=== PATIENT | male | born 1935 | race Caucasian/White ===

== ENCOUNTER 2025-02-18 16:47 | Outpatient (REF) | payer OTHER, SELFPAY ==
--- OUTSIDE RECORDS SUMMARY | 2025-02-18 19:07 | XMS_ITS | Clinical Summary ---
Author Organization [facility] [address] [place] [address] [place] [phone] Phone Care Team Providers Care Skein Yard Drier Name Role Phone KieranloliCielo summers Primary Care Provider [phone] Allergies No known active allergies Medications Comfort EZ Pen [place] 32 gauge x 5/32 needle USE FOR INJECT insulin 4 (FOUR) TIMES DAILY 100 each 5 024 Active enalapril (VASOTEC) 20 mg tablet Take 1 tablet (20 mg total) by mouth 1 (one) time each day. Active simvastatin (ZOCOR) 40 mg tablet Take 1 tablet (40 mg total) by mouth at bedtime. 024 Active HumaLOG KwikPen Insulin 100 unit/mL injection pen Inject 5-10 Units under the skin 3 (three) times a day before meals. nject 5-10 Units into the skin 3 times daily (with meals). Inject 3 times a day with meals. Follow the scale during the week with breakfast and lunch at day [id number] 5 units; 150-200 6 units; 201-250 7 units; 251-300 8 units; 301-350 9 units; 351-400 10 units, at dinner and during the weekend 8 units Active Dexcom G6 Sensor device Inject 1 EA into the skin See administration instructions. USE 1 sensor AND CHANGE EVERY 10 DAYS 024 Active pen needle, diabetic 32 gauge x 5/32 needle 1 each by Other route 4 (four) times a day. 022 Active Dexcom G6 Transmitter device 1 each by Other route See administration instructions. CHANGE transmitter EVERY 3 MONTHS 024 Active miscellaneous medical supply mis 1 Device by Not Applicable route. 023 Active OneTouch Ultra Test test strip 1 each by Other route 3 (three) times a day. Active lancets 33 gauge misc 1 Lancet by Other route 3 (three) times a day. Active Glucagon HCl, rDNA, (Glucagon Emergency Kit, human,) 1 mg injection Inject 1 Dose under the skin 1 (one) time if needed for low blood sugar. Active blood glucose control, normal (OneTouch Ultra Control) solution Use to calibrate OneTouch glucometer/strips 018 Active Jardiance 25 mg tablet TAKE 1 TABLET BY MOUTH ONCE DAILY 30 tablet 5 024 Active Trulicity 4.5 mg/0.5 mL pen injector injection INJECT THE CONTENTS OF ONE PEN SUBCUTANEOUSLY WEEKLY DIRECTED 6 mL 025 Active metFORMIN (GLUCOPHAGE) 1,000 mg tabletIndicatio ns:Type 2 diabetes mellitus with other diabetic neurological complication ([facility] V24, [facility] V28) TAKE 1 TABLET BY MOUTH ONCE DAILY WITH BREAKFAST 30 tablet 5 025 Active prazosin (MINIPRESS) 1 mg capsule TAKE 1 CAPSULE BY MOUTH AT BEDTIME 30 capsule 5 025 Active Lantus Solostar U-100 Insulin 100 unit/mL (3 mL) injection pen Inject 20 Units under the skin 1 (one) time each day in the morning. 45 mL 025 Active gabapentin (NEURONTIN) 100 mg capsuleIndicati ons:Type 2 diabetes mellitus with other diabetic neurological complication (CMS/HCC V24, [facility] V28) TAKE 1 CAPSULE BY MOUTH IN THE MORNING and 2 CAPSULES AT BEDTIME 90 capsule 5 025 Active gabapentin (NEURONTIN) 100 mg capsuleIndicati ons:Type 2 diabetes mellitus with other diabetic neurological complication ([facility] V24, [facility] V28) TAKE 1 CAPSULE IN THE MORNING and TAKE 2 CAPSULES AT BEDTIME 270 capsule 1 024 2024 Discontinued Lantus Solostar U-100 Insulin 100 unit/mL (3 mL) injection pen Inject 40 Units under the skin 1 (one) time each day in the morning. 45 mL 10/10/2 025 2024 Discontinued(R eorder) Active Problems Problem Noted Date Diagnosed Date BPH (benign prostatic hyperplasia) 08/10/2024 Hyperlipidemia 08/10/2024 Hypertension 08/10/2024 Lumbar spondylosis 06/30/2020 DJD (degenerative joint disease) of knee 020 Overview (08/10/2024): Moderate bilateral (xray 2018) Basal cell carcinoma (BCC) of left lower eyelid 03/17/2020 Overview (08/10/2024): S/p Mohs 03/31/2020 UMass MCI (mild cognitive impairment) with memory loss 12/10/2019 Overview (08/10/2024): Neuro 04/2020 Dr Ojeda Erectile dysfunction 04/15/2019 Daytime sleepiness 01/01/2019 Obstructive sleep apnea 03/15/2018 Overview (08/10/2024): [facility] Home Polysomnogram: Date 03/07/2018; AHI 15, Unclassified apneas 0; Obstructive apneas 22; Central apneas 0; Mixed apneas 0; hypopneas 59; average oxygen saturation 95% (lowest 89% without saturations <88% for 5% or more of study) - Obstructive Sleep Apnea - moderate; mostly hypopneas and obstructive apneas; without sleep related hypoventilation by 2018 home polysomnogram. Diabetes mellitus type 2 wit h neurological manifestations ([facility] V24, [facility] V28) 12/21/2017 Diabetic neuropathy ([facility] V24, [facility] V28) 0 12/21/2017 DM (diabetes mellitus) with peripheral vascular complication ([facility] V24, [facility] V28) 10/12/2017 Encounters Date Type Department Care Team Description 01/29/2025 4:00 PM EDT [facility] [address] [place] [phone] Asia Al PA Diabetes mellitus type 2 with neurological manifestations ([facility] V24, [facility] V28) (Primary Dx); Secondary hypertension; Hyperlipidemia, unspecified hyperlipidemia type 01/08/2025 Telephone Endocrinology - [place] [address] [place] [phone] Asia Al PA provider call back; Blood Sugar Problem (LOW) 01/02/2025 11:30 AM EDT Office Visit Internal Medicine - [address] [phone] Irvin Pinzon PA Health maintenance examination (Primary Dx); Peripheral edema 11/21/2024 Telephone Internal Medicine - [address] [phone] Cielo Hampton, Referral (Referral to Dr. Lavinia Higginbotham in [place]) 11/20/2024 Telephone Internal Medicine - [address] [phone] Cielo Hampton, Fitting for DME ([employer]) from Last 3 Months Immunizations Name Administration Dates Next Due Influenza trivalent, 0.5mL ( Fluad) 65yo and older 08/01/2023,07/05/2022,06/09/2021,07/02 PPD Test 11/07/2017 iCatapult SARS-CoV-2 COVID-19, mRNA, LNP-S, preservative free 04/28/2021,04/07/2021 Pneumococcal conjugate 13 va lent (Prevnar 13, PCV13) 2mo and older 11/07/2017 Pneumococcal polysaccharide 23 valent (Pneumovax 23) 2yo and older 07/16/2019 Tdap Tetanus diptheria acell ular pertussis (Boostrix; Adacel) 7yo and older 11/07/2017 Surgical History Surgery Date Site/Laterality Comments CHOLECYSTECTOMY PROCEDURE: HISTORICAL CHOLECYSTECTOMY APPENDECTOMY PROCEDURE: HISTORICAL APPENDECTOMY OTHER SURGICAL HISTORY 03/31/2020 Left PROCEDURE: CA EXC LESION EYELID W/O CLSR/W/SIMPLE DIR CLOSURE; COMMENT: lower lid BCC - Mohs', eyelid reconstruction >1/4 inch; [facility] (Dr. Yu) Medical History Medical History Date Comments High cholesterol DX:High cholest roberto carlos Hypertension DX:Hypertension Diabetes type 2, uncontrolled DX :Diabetes type 2, uncontrolled BPH (benign prostatic hyperplasia) DX:BPH (benign prostatic hyperplasia) DM (diabetes mellitus), type 2, uncontrolled, periph vascular complic 10/12/2017 DX:DM (diabetes mellitus), type 2, uncontrolled, periph vascular complic Daytime sleepiness 01/01/2019 DX:Daytime sl eepiness Erectile dysfunction 04/15/2019 DX:Erectile dysfunction Family History Medical History Relation Name Comments Alzheimer's disease Mother Other: rectal cancer Son Relation Name Status Comments Mother Son Social History Tobacco Use Types Packs/Day Years Used Date Smoking Tobacco: Former Cigarettes 1 20 0 09/11/1953 - 09/11/1973 Smokeless Tobacco: Never Alcohol Use Standard Drinks/Week Comments No 0 (1 standard drink = 0.6 oz pur e alcohol) Sex and Gender Information Value Date Recorded Sex Assigned at Not on file Legal Sex Male 12:43 PM EST Gender Identity Not on file Sexual Orientation Not on file Obstetrics History Last Filed Vital Signs Vital Sign Reading Time Taken Comments Blood Pressure 132/64 01/29/2025 4:09 PM EDT Pulse 86 01/29/2025 4:09 PM EDT Temperature 36.2 ??C (97.2 ??F) 01/29/2025 4:09 PM ED T Respiratory Rate 18 01/29/2025 4:09 PM EDT Oxygen Saturation 100% 01/29/2025 4:09 PM EDT Inhaled Oxygen Concentration - - Weight 101 kg (222 lb 6.4 oz) 01/29/2025 4:09 PM EDT Height 167.6 cm (5' 6 ) 01/29/2025 4:09 PM EDT Body Mass Index 35.9 01/29/2025 4:09 PM EDT Plan of Treatment Upcoming Encounters Date Type Department Care Team (Late st Contact Info) Description 04/30/2025 3:45 PM EDT Office Visit Endocrinology [address] [phone] Asia Al PA [address] [place] [address] 07/04/2025 2:15 PM EDT Office Visit Internal Medicine - [facility] [address] [place], [place] [phone] Irvin Pinzon PA [address] [place] [address] Health Maintenance Due Date Last Done Comments RSV Immunization Adult Patients (1 - 1-dose 75+ series) 2012 Zoster Vaccines (2 of 2) 01/11/2022 11/16/2021 Medicare Annual Wellness Visit 08/20/2022 Social Influencers of Health Screening 08/20/2022 COVID-19 Vaccine ( season) 2024 11/16/2021, 04/28/2021, 04/07/2021 Depression Screening 12/31/2024 01/01/2024 Diabetes: Annual Foot Exam 12/31/2024 01/01/2024 Falls Risk Assessment 12/31/2024 01/01/2024 Influenza Vaccine (Season Ended) 2025 08/01/2023, 07/05/2022, 06/09/2021, Additional history exists Diabetes: Annual Retina Eye Exam 06/06/2025 06/06/2024 Diabetes: Blood Sugar Control Test (HGBA1C) 08/01/2025 01/29/2025, 10/10/2024, 06/12/2024, Additional history exists Hypertension/CHF/CAD Annual BMP Blood Test 10/10/2025 10/10/2024, 06/27/2024, 06/27/2024 DTaP,Tdap,and Td Vaccines (2 - Td or Tdap) 11/07/2027 11/07/2017 Cholesterol Screening (Lipid Panel) 10/10/2029 10/10/2024, 01/01/2024 Pneumococcal Vaccine: 50+ Years Completed 07/16/2019, 11/07/2017 HIB Vaccines Aged Out No longer eligi ble based on patient's age to complete this topic HPV Vaccines Aged Out No longer eligi ble based on patient's age to complete this topic Hepatitis A Vaccines Aged Out No long er eligible based on patient's age to complete this topic Hepatitis B Vaccines Aged Out No long er eligible based on patient's age to complete this topic IPV Vaccines Aged Out No longer eligi ble based on patient's age to complete this topic MMR Vaccines Aged Out No longer eligi ble based on patient's age to complete this topic Meningococcal ACWY Vaccine Aged Out N o longer eligible based on patient's age to complete this topic Meningococcal B Vaccine Aged Out No l onger eligible based on patient's age to complete this topic RSV Immunization Patients Under 20 months Aged Out No longer eligible based on patient's age to complete this topic Varicella Vaccines Aged Out No longer eligible based on patient's age to complete this topic Procedures Procedure Name Priority Date/Time Associated Diagnosis Comments HEMOGLOBIN A1C Routine 01/29/2025 4:56 PM EDT Diabetes mellitus type 2 with neurological manifestations ([facility]24, [facility] V28) B-TYPE NATRIURETIC PEPTIDE Routine 01/02/2025 12:46 PM EDT Peripheral edema BASIC METABOLIC PANEL Routine 10/10/2024 4:02 PM EST DM (diabetes mellitus) with peripheral vascular complication ([facility] V24, [facility] V28) LIPID PANEL WITH REFLEX TO DIRECT LDL Routine 10/10/2024 4:02 PM EST Hyperlipidemia DIABETES EYE EXAM Routine 06/06/2024 DEPRESSION SCREENING Routine 01/01/2024 FALLS RISK ASSESSMENT Routine 01/01/2024 DIABETES FOOT EXAM Routine 01/01/2024 from Last 3 Months or Most Recently Relevant to Health Maintenance Results * (ABNORMAL) Hemoglobin A1c (01/29/2025 4:56 PM EDT) Hemoglobin A1C 6.8(H) <6.5 % LAB CHEMISTRY METHOD 01/31/2025 1:32 PM EDT [facility] Mean Bld Glu Estim. 148 mg/dL LAB CHEMISTRY METHOD 01/31/2025 1:32 PM EDT [facility] Blood Venous blood specimen / Unknown Venipuncture / Unknown 01/29/2025 4:56 PM EDT 01/29/2025 4:56 PM EDT Asia CONTI LAB BLOOD ORDERABLES Final Result Performing Organization Address City/[facility]/ZIP Co de Phone Number [facility] [address] [place] [address], [place] [phone] * B-type natriuretic peptide (01/02/2025 12:46 PM EDT) Pathologist [facility] BNP 96 <=100 pcg/mL LAB CHEMISTRY METHOD 01/02/2025 2:20 PM EDT [facility] Blood Venous blood specimen / Unknown Venipuncture / Unknown 01/02/2025 12:46 PM EDT 01/02/2025 12:46 PM EDT Irvin CONTI LAB BLOOD ORDERABLES Fi nal Result Performing Organization Address [facility]/ZIP Co de Phone Number [facility] [address] [place] [address], [place] [phone] * (ABNORMAL) Lipid panel with reflex to direct LDL (10/10/2024 4:02 PM EST) [facility] Cholesterol 162 0 - 200 mg/dL LAB CHEMISTRY METHOD 10/10/2024 6:26 PM [facility] Triglycerides 243(H) 0 - 150 mg/dL LAB CHEMISTRY METHOD 10/10/2024 6:26 PM EST [facility] HDL 35(L) >=40 mg/dL LAB CHEMISTRY METHOD 10/10/2024 6:26 PM EST [facility] LDL Calculated 78 0 - 100 mg/dL LAB CHEMISTRY METHOD 10/10/2024 6:26 PM EST [facility] VLDL Cholesterol Sukhdev 48.6 mg/dL LAB CHEMISTRY METHOD 10/10/2024 6:26 PM EST [facility] Non HDL Chol. (LDL+VLDL) 127 <145 mg/dL LAB CHEMISTRY METHOD 10/10/2024 6:26 PM [facility] Chol/HDL Ratio 4.6(H) 0.0 - 4.4 LAB CHEMISTRY METHOD 10/10/2024 6:26 PM [facility] Blood Venous blood specimen / Unknown Venipuncture / Unknown 10/10/2024 4:02 PM EST 10/10/2024 4:02 PM EST us Asia CONTI LAB BLOOD ORDERABLES Final Result [facility] [address] [place] [address], [place] [phone] * (ABNORMAL) Basic metabolic panel (10/10/2024 4:02 PM EST) Sodium 140 133 - 145 mmol/L LAB CHEMISTRY METHOD 10/10/2024 6:45 PM [facility] Potassium 4.7 3.5 - 5.5 mmol/L LAB CHEMISTRY METHOD 10/10/2024 6:45 PM [facility] Chloride 106 96 - 110 mmol/L LAB CHEMISTRY METHOD 10/10/2024 6:45 PM [facility] CO2 31 21 - 32 mmol/L LAB CHEMISTRY METHOD 10/10/2024 6:45 PM [facility] Anion Gap 3 3 - 11 LAB CHEMISTRY METHOD 10/10/2024 6:45 PM [facility] Glucose 143(H) 70 - 100 mg/dL LAB CHEMISTRY METHOD 10/10/2024 6:45 PM [facility] BUN 23 5 - 25 mg/dL LAB CHEMISTRY METHOD 10/10/2024 6:45 PM [facility] Creatinine 1.35(H) 0.70 - 1.30 mg/dL LAB CHEMISTRY METHOD 10/10/2024 6:45 PM [facility] eGFR 51(L) >=60 mL/min/1. 73m2 LAB CHEMISTRY METHOD 10/10/2024 6:45 PM EST [facility] Comment:Calculation based on the??Chronic Kidney Disease Epidemiology Collaboration (CKD-EPI) equation refit??without adjustment for race. BUN/Creatinine Ratio 17.0 LAB CHEMISTRY METHOD 10/10/2024 6:45 PM EST [facility] Calcium 9.5 8.5 - 10.5 mg/dL LAB CHEMISTRY METHOD 10/10/2024 6:45 PM EST [facility] Blood Venous blood specimen / Unknown Venipuncture / Unknown 10/10/2024 4:02 PM EST 10/10/2024 4:02 PM EST Asia CONTI LAB BLOOD ORDERABLES Final Result [facility] [address] [place] [address], * Diabetes Eye Exam (06/06/2024) [facility] Diabetes: Annual Retina Eye Exam abstracted [facility] Provider HEALTH MAINTENANCE Final Result * Falls Risk Assessment (01/01/2024) [facility] Falls Risk Assessment abstracted [facility] Provider HEALTH MAINTENANCE Final Result * Depression Screening (01/01/2024) [facility] Depression Screening abstracted Historical Provider HEALTH MAINTENANCE Final Result * Diabetes Foot Exam (01/01/2024) [facility] Diabetes: Annual Foot Exam abstracted Historical Provider HEALTH MAINTENANCE Final Result from Last 3 Months or Most Recently Relevant to Health Maintenance Insurance [employer] Care Teams Skein Yard Drier Relationship Specialty Start Date End Date Cielo Hampton DO [address] [place] [id number] PCP - General 06/17/24
== END 2025-02-18 16:48 | disposition home or self-care (01) ==
LOC: HO.LNP 16:47
PROVIDERS: Visit Provider Emergency Medicine
DX: R39.9 Unspecified symptoms and signs involving the genitourinary system (principal)
CPT/HCPCS: 87086

== ENCOUNTER 2025-06-04 15:56 | Outpatient (REF) | payer OTHER, SELFPAY ==
--- OUTSIDE RECORDS SUMMARY | 2025-01-23 11:30 | XMS_ITS ---
Author Organization [facility] Address [address] [place] [address] Care Team Providers Care Independent Living Specialist Name Role Phone Shahbaz Neves Primary Care Provider Unavailable Lavinia Higginbotham Unavailable [phone] Encounters Encounter Location Date Provider Diagnosis [address] [phone] 01/23/2025 Lavinia Higginbotham Plan Of Treatment Next Appt Details Provider Name:Lavinia lynn, 08/04/2025 03:30:00 PM, [address] [place] [address], [phone], Progress Notes * Wale MCKENNADO B:1935 (89 yo M)Acc No.[id number]:01/23/2025 Progress Note Patient: Narendra JOHANNA Wale Provider: Huma Higginbotham DPM :1935 A ge:89 Y S ex:Male Date:01/23/2025 Address:[address] [place], [place] [id number] Pcp:Shahbaz mahoney Subjective: * Chief Complaints: * * Medical History: Objective: * Vitals: Assessment: Plan: * Treatment: * Images: * The named appointment provid er may or may not be the originator of this progress note, and it is not deemed complete until electronically signed by the appointment provider. Sign off status: Pending * Provider: Huma Higginbotham DPM Date: 0 01/23/2025 Generated for Jasen Mathew/Eulalia on: 0 06/04/2025 06:00 PM EDT
--- OUTSIDE RECORDS SUMMARY | 2025-06-04 15:15 | XMS_ITS | Encounter Summary ---
Author Organization [employer] Address [address] [facility] [address] [place] [address] Care Team Providers Care Aluminum Pourer Name Role Phone Shahbaz Rojas MD Primary Care Prov ider Encounter Details Date Type Department Care Team ([facility] st Contact Info) Description 06/04/2025 3:15 PM EDT Office Visit [facility] [address] [place], [place] [phone] Shahbaz Rojas MD [address] [place] [address] Type 2 diabetes mellitus with other circulatory complication, without long-term current use of insulin ([facility]) (Primary Dx); Mixed hyperlipidemia; Primary hypertension Social History Tobacco Use Types Packs/Day Years Used Date Smoking Tobacco: Former Cigarettes 0.5 17 S tarted: 1968 Smokeless Tobacco: Never Alcohol Use Standard Drinks/Week Comments Not Currently 0 (1 standard drink = 0.6 oz pur e alcohol) Sex and Gender Information Value Date Recorded Sex Assigned at Male 07/11/2022 10:33 AM EDT Legal Sex Male 10:33 AM EDT Gender Identity Male 07/11/2022 10:33 AM EDT Sexual Orientation Straight 07/11/2022 10 :33 AM EDT documented as of this encounter Last Filed Vital Signs Vital Sign Reading Time Taken Comments Blood Pressure 138/70 06/04/2025 3:24 PM EDT Pulse 92 06/04/2025 3:24 PM EDT Temperature 36.1 C (97 F) 06/04/2025 3:24 PM EDT Respiratory Rate 16 06/04/2025 3:24 PM EDT Oxygen Saturation - - Inhaled Oxygen Concentration - - Weight 97.1 kg (214 lb) 06/04/2025 3:24 PM EDT Height 154.9 cm (5' 1 ) 06/04/2025 3:24 PM EDT Body Mass Index 40.43 06/04/2025 3:24 PM EDT documented in this encounter Miscellaneous Notes * Assessment & Plan Note - Shahbaz Gilbert MD - 06/04/2025 4:45 PM EDTAssociated Problem(s): Type 2 diabetes mellitus with circulatory disorder, without long-term current use of insulin (CMS/HCC) Followed by endocrinology, last A1c was 9.0, encouraged low carb/no sugar diet, follow up in 4 months * Assessment & Plan Note - Shahbaz Gilbert MD - 06/04/2025 4:45 PM EDTAssociated Problem(s): Primary hypertension Controlled, keep low sodium diet and exercise as tolerated, keep blood pressure log, target <140/90 * Assessment & Plan Note - Shahbaz Gilbert MD - 06/04/2025 4:45 PM EDTAssociated Problem(s): Mixed hyperlipidemia On statin therapy, pending new labs for guidance of therapy, no changes will be amndfe documented in this encounter Plan of Treatment Scheduled Orders Name Type Priority Associated Diagnoses Orde r Schedule CBC auto differential Lab Routine Type 2 diabetes mellitus with other circulatory complication, without long-term current use of insulin (CMS/HCC) Expected: 06/04/2025 (Approximate), Expires: 06/04/2026 Comprehensive Metabolic Panel Lab Routine Type 2 diabetes mellitus with other circulatory complication, without long-term current use of insulin (CMS/HCC) Expected: 06/04/2025 (Approximate), Expires: 06/04/2026 Lipid Panel, Standard Lab Routine Type 2 diabetes mellitus with other circulatory complication, without long-term current use of insulin ([facility]) Expected: 06/04/2025 (Approximate), Expires: 06/04/2026 TSH W/Reflex to FT4 Lab Routine Type 2 diabetes mellitus with other circulatory complication, without long-term current use of insulin ([facility]) Expected: 06/04/2025 (Approximate), Expires: 06/04/2026 Albumin, Random Urine W/Creatinine Lab Routine Type 2 diabetes mellitus with other circulatory complication, without long-term current use of insulin ([facility]) Expected: 06/04/2025 (Approximate), Expires: 06/04/2026 documented as of this encounter Procedures Procedure Name Priority Date/Time Associated Diagnosis Comments POCT GLUCOSE Routine 06/04/2025 3:26 PM EDT Type 2 diabetes mellitus with other circulatory complication, without long-term current use of insulin ([facility]) documented in this encounter Results * (ABNORMAL) POCT Glucose (06/04/2025 3:26 PM EDT) [facility] Glucose Blood, POC 249(A) 60 - 200 mg/dL QC Media Lot # [id number] Lot# Expiration Date Blood Capillary blood specimen / Unknown 06/04/2025 3:26 PM EDT Shahbaz Gilbert MD POINT OF CARE TEST ENTER/EDIT ORDERABLES Final Result documented in this encounter Visit Diagnoses Diagnosis Type 2 diabetes mellitus with other circulatory complication, without long-term current use of insulin ([facility])- Primary Mixed hyperlipidemia Primary hypertension Unspecified essential hypertension documented in this encounter Care Teams Aluminum Pourer Relationship Specialty Start Date End Date Shahbaz Rojas MD [address] [place] [phone] PCP - General Internal Medicine 01/30/25 documented as of this encounter
--- OUTSIDE RECORDS SUMMARY | 2025-06-04 18:01 | XMS_ITS | Encounter Summary ---
Author Organization [employer] Address [address] [facility] 7 [place] [address] Care Team Providers Care Elderly Sitter Name Role Phone Shahbaz Rjoas MD Primary Care Prov ider Reason for Visit * Reason Onset Date Comments Med Refill 05/21/2025 Encounter Details Date Type Department Care Team ([facility] st Contact Info) Description 05/21/2025 Telephone [facility] [address] [place], [place] [phone] Shahbaz Rojas MD [address] [place] [address] Med Refill Social History Tobacco Use Types Packs/Day Years [...] AM EDT documented as of this encounter Miscellaneous Notes * Telephone Encounter - Vikki Quinn LPN - 05/21/2025 3:04 PM EDT Sensors prescribed by DANNY RODRÍGUEZ (endo) * Telephone Encounter - Yamilet Romero - 05/21/2025 3:01 PM EDT TC from pt requesting medication refill. Medications needing refill : Continuous Glucose Sensor (Dexcom G6 Sensor) [facility] to: [facility] [place] - [phone] - [place] - [phone] documented in this encounter Plan of Treatment Not on file documented as of this encounter Visit Diagnoses Not on filedocumented in this encounter Care Teams Elderly Sitter Relationship Specialty Start Date End Date Shahbaz Rojas MD [address] [place] [id number] PCP - General Internal Medicine 01/30/25 documented as of this encounter
--- OUTSIDE RECORDS SUMMARY | 2025-06-04 18:01 | XMS_ITS | Encounter Summary ---
Author Organization [employer] Address [address] [place] [address] 7 [place] [address] Care Team Providers Care Rat Farmer Name Role Phone Shahbaz Rojas MD Primary Care Prov ider Encounter Details Date Type Department Care Team (Latest Contact Info) Description 07/17/2019 Abstract [facility] CONVERSIONS Dental, Provider, DDS Social History Tobacco Use Types Packs/Day Years Used Date Smoking Tobacco: Never Assessed Sex and Gender Information Value Date Recorded Sex Assigned at Male 07/11/2022 10:33 AM EDT Legal Sex Male 10:33 AM EDT Gender Identity Male 07/11/2022 10:33 AM EDT Sexual Orientation Straight 07/11/2022 10 :33 AM EDT documented as of this encounter Plan of Treatment Not on file documented as of this encounter Visit Diagnoses Not on filedocumented in this encounter Care Teams Rat Farmer Relationship Specialty Start Date End Date Shahbaz Rojas MD [address] [place] [address] PCP - General Internal Medicine 01/30/25 documented as of this encounter
--- OUTSIDE RECORDS SUMMARY | 2025-06-04 18:01 | XMS_ITS | Clinical Summary ---
Author Organization [facility] [address] [place] [address] [place] [phone] Phone Care Team Providers Care Boom Tender Name Role Phone Winifred Hamptonmana Primary Care Provider Allergies No known active allergies Medications enalapril (VASOTEC) 20 mg tablet Take 1 tablet (20 mg total) by mouth 1 (one) time each day. Active simvastatin (ZOCOR) 40 mg tablet Take 1 tablet (40 mg total) by mouth at bedtime. Active HumaLOG KwikPen Insulin 100 unit/mL injection pen Inject 5-10 Units under the skin 3 (three) times a day before meals. nject 5-10 Units into the skin 3 times daily (with meals). Inject 3 times a day with meals. Follow the scale during the week with breakfast and lunch at day [id number] 5 units; 150-200 6 units; 201-250 7 units; 251-300 8 units; 301-350 9 units; 351-400 10 units, at dinner and during the weekend 8 units Active pen needle, diabetic 32 gauge x 5/32 needle 1 each by Other route 4 (four) times a day. Active Dexcom G6 Transmitter device 1 each by Other route See administration instructions. CHANGE transmitter EVERY 3 MONTHS Active OneTouch Ultra Test test strip 1 [...] Control) solution Use to calibrate OneTouch glucometer/strips Active metFORMIN (GLUCOPHAGE) 1,000 mg tabletIndicatio ns:Type 2 diabetes mellitus with other diabetic neurological complication ([facility] V24, [facility] V28) TAKE 1 TABLET BY MOUTH ONCE DAILY WITH BREAKFAST 30 tablet Active prazosin (MINIPRESS) 1 mg capsule TAKE 1 CAPSULE BY MOUTH AT BEDTIME 30 capsule Active Trulicity 4.5 mg/0.5 mL pen injector injection INJECT THE CONTENTS OF ONE PEN SUBCUTANEOUSLY WEEKLY DIRECTED 6 mL Active pen needle, diabetic (Comfort EZ Pen [place]) 32 gauge x 5/32 needle USE FOR injecting insulin 4 (FOUR) TIMES DAILY 100 each 5 Active Jardiance 25 mg tablet TAKE 1 TABLET BY MOUTH ONCE DAILY 90 tablet Active pregabalin (LYRICA) 75 mg capsule Take 1 capsule (75 mg total) by mouth 2 (two) times a day. Max Daily Amount: 150 mg Active Lantus Solostar U-100 Insulin 100 unit/mL (3 mL) injection pen Inject 24 Units under the skin 1 (one) time each day in the morning. 45 mL Active Dexcom G6 Sensor deviceIndicatio ns:Type 2 diabetes mellitus with other diabetic neurological complication ([facility] V24, [facility] V28) USE 1 sensor AND CHANGE EVERY 10 DAYS 3 each Active Dexcom G6 Sensor device Inject 1 EA into the skin See administration instructions. USE 1 sensor AND CHANGE EVERY 10 DAYS 024 2024 Discontinued Active Problems Problem Noted Date Diagnosed Date BPH (benign prostatic hyperplasia) 08/10/2024 Hyperlipidemia 08/10/2024 Hypertension 08/10/2024 Lumbar spondylosis 06/30/2020 DJD (degenerative joint disease) of knee Overview (08/10/2024): Moderate bilateral (xray 2018) Basal cell carcinoma (BCC) of left lower eyelid 03/17/2020 Overview (08/10/2024): S/p Mohs 03/31/2020 UMass MCI (mild cognitive impairment) with memory loss 12/10/2019 Overview (08/10/2024): Neuro 04/2020 Dr Ojeda Erectile dysfunction 04/15/2019 Daytime sleepiness 01/01/2019 Obstructive sleep apnea 03/15/2018 Overview (08/10/2024): [facility] Home Polysomnogram: Date 03/07/2018; AHI 15, Unclassified apneas 0; Obstructive apneas 22; Central apneas 0; Mixed apneas 0; hypopneas 59; average oxygen saturation 95% (lowest 89% without saturations <88% for 5% or more of study) - Obstructive Sleep Apnea - moderate; mostly hypopneas and obstructive apneas; without sleep related hypoventilation by 2018 home polysomnogram. Diabetes mellitus type 2 wit h neurological manifestations ([facility] V24, [facility] V28) 12/21/2017 Diabetic neuropathy ([facility] V24, [facility] V28) 0 12/21/2017 DM (diabetes mellitus) with peripheral vascular complication ([facility] V24, [facility] V28) 10/12/2017 Encounters Date Type Department Care Team Description 04/30/2025 3:45 PM EDT Office Visit Endocrinology [address] [phone] Asia Al PA Diabetes mellitus type 2 with neurological manifestations ([facility] V24, [facility] V28) (Primary Dx); Secondary hypertension; Hyperlipidemia, unspecified hyperlipidemia type from Last 3 Months Immunizations Name Administration Dates Next Due Influenza trivalent, 0.5mL ( Fluad) 65yo and older 08/01/2023,07/05/2022,06/09/2021,07/02 PPD Test 11/07/2017 Pfizer SARS-CoV-2 COVID-19, mRNA, LNP-S, preservative free 04/28/2021,04/07/2021 Pneumococcal conjugate 13 va lent (Prevnar 13, PCV13) 2mo and older 11/07/2017 Pneumococcal polysaccharide 23 valent (Pneumovax 23) 2yo and older 07/16/2019 Tdap Tetanus diptheria acell ular pertussis (Boostrix; Adacel) 7yo and older 11/07/2017 Surgical History Surgery Date Site/Laterality Comments CHOLECYSTECTOMY PROCEDURE: HISTORICAL CHOLECYSTECTOMY APPENDECTOMY PROCEDURE: HISTORICAL APPENDECTOMY OTHER SURGICAL HISTORY 03/31/2020 Left PROCEDURE: NV EXC LESION EYELID W/O CLSR/W/SIMPLE DIR CLOSURE; COMMENT: lower lid BCC - Mohs', eyelid reconstruction >1/4 inch; [facility] (Dr. Yu) Medical History Medical History [...] 0 09/11/1951 - 09/11/1971 Smokeless Tobacco: Never Tobacco Cessation:Counseling Given: Not Answered Alcohol Use Standard Drinks/Week Comments No 0 (1 standard drink = 0.6 oz pur e alcohol) Sex and Gender Information Value Date Recorded Sex Assigned at Not on file Legal Sex Male 12:43 PM EST Gender Identity Not on file Sexual Orientation Not on file Obstetrics History Last Filed Vital Signs Vital Sign Reading Time Taken Comments Blood Pressure 122/58 04/30/2025 3:56 PM EDT C Pulse 61 04/30/2025 3:56 PM EDT Temperature 35.9 C (96.6 F) 04/30/2025 3:56 PM EDT Respiratory Rate 18 01/29/2025 4:09 PM EDT Oxygen Saturation 100% 01/29/2025 4:09 PM EDT Inhaled Oxygen Concentration - - Weight 96.8 kg (213 lb 6.4 oz) 04/30/2025 3:56 P M EDT Height 167.6 cm (5' 6 ) 04/30/2025 3:56 PM EDT Body Mass Index 34.44 04/30/2025 3:56 PM EDT Plan of Treatment Upcoming Encounters Date Type Department Care Team (Late st Contact Info) Description 07/04/2025 2:15 PM EDT Office Visit Internal Medicine - [facility] [address] [place], [place] [phone] Irvin Pinzon, SUSHILA [address] [place] [address] 07/31/2025 3:30 PM EST Office Visit Endocrinology - [address] [phone] Asia Al PA [address] [place] [address] Health Maintenance Due Date Last Done Comments RSV Immunization Adult Patients (1 - 1-dose 75+ series) 2012 Zoster Vaccines (2 of 2) 01/11/2022 11/16/2021 Medicare Annual Wellness Visit 08/20/2022 Social Influencers of Health Screening 08/20/2022 Depression Screening 09/11/2024 01/01/2024 Diabetes: Annual Foot Exam 12/31/2024 01/01/2024 Falls Risk Assessment 12/31/2024 01/01/2024 COVID-19 Vaccine ( season) 2025 11/16/2021, 04/28/2021, 04/07/2021 Influenza Vaccine (#1) 2025 , 07/05/2022, 06/09/2021, Additional history exists Diabetes: Annual Retina Eye Exam 06/06/2025 06/06/2024 Hypertension/CHF/CAD Annual BMP Blood Test 10/10/2025 10/10/2024, 06/27/2024, 06/27/2024 Diabetes: Blood Sugar Control Test (HGBA1C) 10/31/2025 04/30/2025, 01/30/2025, 01/29/2025, Additional history exists DTaP,Tdap,and Td Vaccines (2 - Td or [...] Date/Time Associated Diagnosis Comments HEMOGLOBIN A1C Routine 04/30/2025 4:37 PM EDT Diabetes mellitus type 2 with neurological manifestations (CMS/HCC V24, [facility] V28) BASIC METABOLIC PANEL Routine 10/10/2024 4:02 PM EST DM (diabetes mellitus) with peripheral vascular complication (CMS/HCC V24, CMS/HCC V28) LIPID PANEL WITH REFLEX TO DIRECT LDL Routine 10/10/2024 4:02 PM EST Hyperlipidemia DIABETES EYE EXAM Routine 06/06/2024 DEPRESSION SCREENING Routine 01/01/2024 FALLS RISK ASSESSMENT Routine 01/01/2024 DIABETES FOOT EXAM Routine 01/01/2024 from Last 3 Months or Most Recently Relevant to Health Maintenance Results * (ABNORMAL) Hemoglobin A1c (04/30/2025 4:37 PM EDT) Pathologist [facility] Hemoglobin A1C 9.0(H) <6.5 % LAB CHEMISTRY METHOD 04/30/2025 10:15 PM EDT [facility] Mean Bld Glu Estim. 212 mg/dL LAB CHEMISTRY METHOD 04/30/2025 10:15 PM EDT [facility] Blood Venous blood specimen / Unknown Venipuncture / Unknown 04/30/2025 4:37 PM EDT 04/30/2025 4:37 PM EDT us Asia CONTI LAB BLOOD ORDERABLES Final Result [facility] [address] [place] [address], [place] [phone] * (ABNORMAL) Lipid panel with reflex to direct LDL (10/10/2024 4:02 PM EST) [facility] Cholesterol 162 0 - 200 mg/dL LAB CHEMISTRY METHOD 10/10/2024 6:26 PM [facility] Triglycerides 243(H) 0 - 150 mg/dL LAB CHEMISTRY METHOD 10/10/2024 6:26 PM [facility] HDL 35(L) >=40 mg/dL LAB CHEMISTRY METHOD 10/10/2024 6:26 PM [facility] LDL Calculated 78 0 - 100 mg/dL LAB CHEMISTRY METHOD 10/10/2024 6:26 PM [facility] VLDL Cholesterol Sukhdev 48.6 mg/dL LAB CHEMISTRY METHOD 10/10/2024 6:26 PM [facility] Non HDL Chol. (LDL+VLDL) 127 <145 mg/dL LAB CHEMISTRY METHOD 10/10/2024 6:26 PM [facility] Chol/HDL Ratio 4.6(H) 0.0 - 4.4 LAB CHEMISTRY METHOD 10/10/2024 6:26 PM [facility] Blood Venous blood specimen / Unknown Venipuncture / Unknown 10/10/2024 4:02 PM EST 10/10/2024 4:02 PM EST us Asia [facility]TI LAB BLOOD ORDERABLES Final Result [facility] [address] [place] [address], [place] [phone] * (ABNORMAL) Basic metabolic panel (10/10/2024 4:02 PM EST) Sodium 140 133 - 145 mmol/L LAB CHEMISTRY METHOD 10/10/2024 6:45 PM [facility] Potassium 4.7 3.5 - 5.5 mmol/L LAB CHEMISTRY METHOD 10/10/2024 6:45 PM [facility] Chloride 106 96 - 110 mmol/L LAB CHEMISTRY METHOD 10/10/2024 6:45 PM [facility] CO2 31 21 - 32 mmol/L LAB CHEMISTRY METHOD 10/10/2024 6:45 PM [facility] Anion Gap 3 3 - 11 LAB CHEMISTRY METHOD 10/10/2024 6:45 PM [facility] Glucose 143(H) 70 - 100 mg/dL LAB CHEMISTRY METHOD 10/10/2024 6:45 PM [facility] BUN 23 5 - 25 mg/dL LAB CHEMISTRY METHOD 10/10/2024 6:45 PM [facility] Creatinine 1.35(H) 0.70 - 1.30 mg/dL LAB CHEMISTRY METHOD 10/10/2024 6:45 PM [facility] eGFR 51(L) >=60 mL/min/1. 73m2 LAB CHEMISTRY METHOD 10/10/2024 6:45 PM [facility] Comment:Calculation based on the Chronic Kidney Disease Epidemiology Collaboration (CKD-EPI) equation refit without adjustment for race. BUN/Creatinine Ratio 17.0 LAB CHEMISTRY METHOD 10/10/2024 6:45 PM EST [facility] Calcium 9.5 8.5 - 10.5 mg/dL LAB CHEMISTRY METHOD 10/10/2024 6:45 PM EST [facility] Blood Venous blood specimen / Unknown Venipuncture / Unknown 10/10/2024 4:02 PM EST 10/10/2024 4:02 PM EST us Asia [facility]TI LAB BLOOD ORDERABLES Final Result [facility] [address] [place] [address], [place] [phone] * Diabetes Eye Exam (06/06/2024) Pathologist [facility] Diabetes: Annual Retina Eye Exam abstracted Historical Provider MD HEALTH MAINTENANCE Final Result * Falls Risk Assessment (01/01/2024) [facility] Falls Risk Assessment abstracted [facility] Provider MD HEALTH MAINTENANCE Final Result * Depression Screening (01/01/2024) [facility] Depression Screening abstracted [facility] Provider MD HEALTH MAINTENANCE Final Result * Diabetes Foot Exam (01/01/2024) [facility] Diabetes: Annual Foot Exam abstracted Historical Provider MD HEALTH MAINTENANCE Final Result from Last 3 Months or Most Recently Relevant to Health Maintenance Insurance [employer] Care Teams Boom Tender Relationship Specialty Start Date End Date Cielo Hampton DO [address] [facility] [place] [address] PCP - General 06/17/24
--- OUTSIDE RECORDS SUMMARY | 2025-06-04 18:01 | XMS_ITS | Encounter Summary ---
Author Organization [employer] Address [address] [facility] 7 [place] [address] Care Team Providers Care Air Transportation Provider Name Role Phone Shahbaz Rojas MD Primary Care Prov ider Reason for Visit * Reason Onset Date Comments nurse triage 02/17/2025 Encounter Details Date Type Department Care Team ([facility] st Contact Info) Description 02/17/2025 Telephone [facility] [address] [place] [address] Shahbaz Rojas MD [address] [place] [phone] nurse triage Social History Tobacco Use Types Packs/Day Years [...] encounter Miscellaneous Notes * Telephone Encounter - Marixa Celestin RN - 02/17/2025 11:27 AM EDT Triage call to Yoselyn who runs a program where Pt attends. Pt has been showing some aggressive behavior at program and this has been reported to son. Son doesn't have time to follow up for apt so requests program to obtain MD moeller. Yoselyn is advised to bring Pt to [facility] open till 8pm today for provider to see Pt. UTI is suspected. Yoselyn agrees with this plan and will bring Pt to [facility]. No further questions. Insurance is verified as active. Protocol Used: Information Only Call - No Triage (Adult) Protocol-Based Disposition: Home Care Positive Triage Question: * Health information question, no triage required and triager able to answer question * All higher-acuity triage questions were negative Care Advice Discussed: * Reasons To Call Back - New symptoms develop - You have more questions - You become worse * Telephone Encounter - Nacho Soto - 02/17/2025 10:14 AM EDT MALGORZATA [facility] with [facility] reports wanting patient to get checked for a UTI due to agressive behavior last week at program documented in this encounter Plan of Treatment Not on file documented as of this encounter Visit Diagnoses Not on filedocumented in this encounter Care Teams Air Transportation Provider Relationship Specialty Start Date End Date Shahbaz Rojas MD [address] [place] [id number] PCP - General Internal Medicine 01/30/25 documented as of this encounter
--- OUTSIDE RECORDS SUMMARY | 2025-06-04 18:01 | XMS_ITS | Clinical Summary ---
Author Organization [employer] Address [address] [facility] 7t [place] [address] Care Team Providers Care Patient Service Coordinator Name Role Phone Shahbaz Rojas MD Primary Care Prov ider Allergies No known active allergies Medications enalapril (Vasotec) 20 MG tablet Take 20 mg by mouth Once per day. Active gabapentin (Neurontin) 100 MG capsule Take 100 mg by mouth in the morning and 100 mg in the evening. Active insulin lispro protamine-insuli n lispro (HumaLOG MIX 50/50 KWIKPEN) (50-50) 100 UNIT/ML injection Inject 5 Units under the skin with breakfast and with evening meal. Active empagliflozin (Jardiance) 25 MG Take 25 mg by mouth Once per day. Active insulin glargine (Lantus) 100 UNIT/ML injection Inject 40 Units under the skin at bedtime. Active metFORMIN (Glucophage) 1000 MG tablet Take 1,000 mg by mouth with breakfast and with evening meal. Active prazosin (Minipress) 1 MG capsule Take 1 mg by mouth at bedtime. Active simvastatin (Zocor) 40 MG tablet Take 40 mg by mouth at bedtime. Active Dulaglutide (Trulicity) 4.5 MG/0.5ML solution auto-injector Inject 4.5 mg under the skin 1 (one) time per week. Active Continuous Glucose Sensor (Dexcom G6 Sensor) misc 1 Units Once per day. Active Continuous Glucose Transmitter (Dexcom G6 transmitter) misc 1 each by Other route Once per day. Active Blood Pressure kit 1 each 2 times daily. 1 kit 5 02/19/20 26 Active Active Problems Problem Noted Date Diagnosed Date Encounter for medical examination to establish c are 01/30/2025 Assessment & Plan (01/30/2025 10:46 AM EDT): Last pcp visit 6 months ER: - Hospitalizations: gallbladder 1985, appendectomy 1993 Pmhx: HTN, Dm, diabetic neuropathy, hyperlipidemia PSHX: cholecystectomy 1985, appendectomy 1993 All: - Meds as above Type 2 diabetes mellitus wit h circulatory disorder, without long-term current use of insulin 01/30/2025 Assessment & Plan (06/04/2025 4:45 PM EDT): Followed by endocrinology, last A1c was 9.0, encouraged low carb/no sugar diet, follow up in 4 months Assessment & Plan (01/30/2025 12:59 PM EDT): Followed by endocrinology, no changes will be made Primary hypertension 01/30/2025 Assessment & Plan (06/04/2025 4:45 PM EDT): Controlled, keep low sodium diet and exercise as tolerated, keep blood pressure log, target <140/90 Assessment & Plan (01/30/2025 12:59 PM EDT): Controlled, continue current therapy, keep low sodium diet, keep bp log Mixed hyperlipidemia 01/30/2025 Assessment & Plan (06/04/2025 4:45 PM EDT): On statin therapy, pending new labs for guidance of therapy, no changes will be amndfe Assessment & Plan (01/30/2025 12:58 PM EDT): On statin therapy, laabs done recently were stable no changes will be made Encounters Date Type Department Care Team Description 06/04/2025 3:15 PM EDT Office Visit [facility] [address] [place] [address] Shahbaz Rojas MD Type 2 diabetes mellitus with other circulatory complication, without long-term current use of insulin ([facility]) (Primary Dx); Mixed hyperlipidemia; Primary hypertension 06/04/2025 Travel 05/21/2025 Telephone [facility] [address] [place] [address] Shahbaz Rojas MD Med Refill 04/24/2025 Telephone [facility] [address] [place] [address] Shahbaz Rojas MD FYI from Last 3 Months Social History Tobacco Use Types Packs/Day Years Used Date Smoking Tobacco: Former Cigarettes 0.5 17 S tarted: 1968 Smokeless Tobacco: Never Tobacco Cessation:Counseling Given: Not Answered Alcohol Use Standard Drinks/Week Comments Not Currently 0 (1 standard drink = 0.6 oz pur e alcohol) Sex and Gender Information Value Date Recorded Sex Assigned at Male 07/11/2022 10:33 AM EDT Legal Sex Male 10:33 AM EDT Gender Identity Male 07/11/2022 10:33 AM EDT Sexual Orientation Straight 07/11/2022 10 :33 AM EDT Last Filed Vital Signs Vital Sign Reading Time Taken Comments Blood Pressure 138/70 06/04/2025 3:24 PM EDT Pulse 92 06/04/2025 3:24 PM EDT Temperature 36.1 C (97 F) 06/04/2025 3:24 PM EDT Respiratory Rate 16 06/04/2025 3:24 PM EDT Oxygen Saturation 98% 02/18/2025 11:01 AM EDT Inhaled Oxygen Concentration - - Weight 97.1 kg (214 lb) 06/04/2025 3:24 PM EDT Height 154.9 cm (5' 1 ) 06/04/2025 3:24 PM EDT Body Mass Index 40.43 06/04/2025 3:24 PM EDT Plan of Treatment Health Maintenance Due Date Last Done Comments Depression Screening 1937 Lipid Panel 1937 SDOH Screening 1937 Eye Exam 12/29/1947 Alcohol/Substance Use Screening 1949 RSV Patients and Patients Aged 60 years or older (1 - 1-dose 75+ series) 2012 Zoster Vaccines (2 of 2) 01/11/2022 11/16/2021 COVID-19 Vaccine ( season) 2025 11/16/2021, 04/28/2021, 04/07/2021 Influenza Vaccine (#1) 2025 3, 08/01/2023, 07/05/2022, Additional history exists Diabetes: Hemoglobin A1C 07/31/2025 025, 01/30/2025, 01/29/2025, Additional history exists Diabetes: Urine Protein Screening 10/10/2025 10/10/2024 Diabetes: Foot Exam 01/30/2026 01/30/2025, 01/30/2025, 01/30/2025, Additional history exists Tobacco Screening 02/18/2026 02/18/2025 DTaP/Tdap/Td Vaccines (2 - Td or Tdap) 11/07/2027 11/07/2017 Pneumococcal Vaccine: 50+ Years Completed 07/16/2019, 11/07/2017 [...] patient's age to complete this topic Meningococcal Vaccine Aged Out No yandel clara eligible based on patient's age to complete this topic RSV under 20 months Aged Out No longe r eligible based on patient's age to complete this topic Rotavirus Vaccines Aged Out No longer eligible based on patient's age to complete this topic Procedures Procedure Name Priority Date/Time Associated Diagnosis Comments POCT GLUCOSE Routine 06/04/2025 3:26 PM EDT Type 2 diabetes mellitus with other circulatory complication, without long-term current use of insulin ([facility]) POCT GLYCATED HEMOGLOBIN, TOTAL Routine 01/30/2025 11:14 AM EDT Type 2 diabetes mellitus with other circulatory complication, without long-term current use of insulin ([facility]) from Last 3 Months or Most Recently Relevant to Health Maintenance Results * (ABNORMAL) POCT Glucose (06/04/2025 3:26 PM EDT) Glucose Blood, POC 249(A) 60 - 200 mg/dL QC Media Lot # [id number] Lot# Expiration Date Blood Capillary blood specimen / Unknown 06/04/2025 3:26 PM EDT Shahbaz Gilbert MD POINT OF CARE TEST ENTER/EDIT ORDERABLES Final Result * (ABNORMAL) POCT HGB A1C (01/30/2025 11:14 AM EDT) Hemoglobin A1C 7.2(A) 4.0 - 6.0 % QC Media Lot # [id number] Lot# Expiration Date Blood 01/30/2025 11:1 4 AM EDT Shahbaz Gilbert MD POINT OF C ARE TEST ENTER/EDIT ORDERABLES Edited Result - Final from Last 3 Months or Most Recently Relevant to Health Maintenance Insurance [facility] Advance Directives Documents on File Type Date Recorded Patient Fleet Driver Expl anation Advance Directives and Livin g Will 01/28/2025 2:39 PM HCP Care Teams Patient Service Coordinator Relationship Specialty Start Date End Date Shahbaz Rojas MD [address] [place] [id number] PCP - General Internal Medicine 01/30/25
--- OUTSIDE RECORDS SUMMARY | 2025-06-04 18:01 | XMS_ITS | Encounter Summary ---
Author Organization [employer] Address [address] [facility] 7 [place] [address] Care Team Providers Care Milling Planer Operator Name Role Phone Shahbaz Rojas MD Primary Care Prov ider Encounter Details Date Type Department Care Team (Latest Contact Info) Description 06/04/2025 Travel Social History Tobacco Use Types Packs/Day Years [...] on filedocumented in this encounter Care Teams Milling Planer Operator Relationship Specialty Start Date End Date Shahbaz Rojas MD [address] [place] [id number] PCP - General Internal Medicine 01/30/25 documented as of this encounter
--- OUTSIDE RECORDS SUMMARY | 2025-06-04 18:01 | XMS_ITS | Patient Health Record ---
Author Organization [facility]man [facility]und[facility] [place] Address [address] [place] [address] Care Team Providers Care Speech Professor Name Role Phone Shahbaz Neves Primary Care Provider Unavailable Lavinia Higginbotham Unavailable [phone] Philly Mendez Unavailable [phone] Maverick Bishop Unavailable [phone] Allergies No Known Allergies Results Component Value Reference Range Notes HEMOGLOBIN A1C (GLYCOHEMOGLO BIN) Reviewed date:11/14/2024 03:22:56 PM Interpretation: Performing Lab: Notes/Report: HEMOGLOBIN A1C % (HH) 6.7 HEMOGLOBIN A1C (GLYCOHEMOGLO BIN) Reviewed date:02/25/2025 03:46:29 PM Interpretation: Performing Lab: Notes/Report: HEMOGLOBIN A1C % (HH) 6.7 Reason For Referral Diagnosis 1 Pain in unspecified foot (M79.673) Referred Organization [facility] Referred Provider Jose Rboerto Obrien Referred Address [address] [facility],[place],[address],[place] Referred Provider Specialty Podiatry Referral Priority Routine Diagnosis 1 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) Referral Organization [facility] Cary bustamante Referring Provider First Name Cielo Referring Provider Last Name Memo [facility] Referred Provider Maverick Bishop Referred Address [address] [facility] Referred Provider Specialty Podiatry Referral Priority Routine Diagnosis 1 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) Diagnosis 2 Pain in left toe(s) (M79.675) Diagnosis 3 Pain in right toe(s) (M79.674) Diagnosis 4 Tinea unguium (B35.1 ) Diagnosis 5 Edema, lower extremi ty (R60.0) Referring Provider First Name Cielo Referring Provider Last Name [facility] Referred Provider Lavinia Higginbotham Referred Address [address] [place], [place],[address],[place] Referred Provider Specialty Podiatry Referral Priority Routine Diagnosis 1 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 Referred Provider Philly Mendez Referred Address [address], [place],[address],[place] Referred Provider Specialty Podiatry Referral Priority Routine Medications Medication SIG (Take, Route, Fr equency, Duration) Notes Start Date End Date Status HumaLOG KwikPen Acti ve Glucagon Emergency A ctive Lantus SoloStar Acti ve Jardiance Active Prazosin HCl Active metFORMIN HCl Active Trulicity Active Simvastatin Active Enalapril Maleate Ac tive Gabapentin Active Immunizations Vaccine Route Administration Date Status Comme nts Influenza Unknown 06/10/2024 Administered Social History Tobacco Use: Social History Observation Description Date Details (start date - stop date) Never Smoker NA - NA Tobacco use other than smoking: Question Answer Notes Are you an other tobacco user? No Tobacco Control (Standard) Question Answer Notes Tobacco use: Nonsmoker Additional Findings: Tobacco non-user Current no nsmoker AUDIT-C (Standard) Question Answer Notes Did you have a drink containing alcohol in the p ast year? No Points 0 Interpretation Negative Problems Problem Type SNOMED Code ICD Code Onset Dates Problem Status W/U Status Risk Notes Problem Acquired hammer toe of right foot (3429970707232 105) Other hammer toe(s) (acquired), right foot (M20.41) Active confirmed Response to treatment,I mprovement Problem Acquired hammer toe of left foot (3881134463211 103) Other hammer toe(s) (acquired), left foot (M20.42) Active confirmed Response to treatment,I mprovement Problem Type 2 diabetes mellitus with peripheral angiopathy (670028404) Type 2 diabetes mellitus with diabetic peripheral angiopathy without gangrene (E11.51) Active confirmed Q7(A), Q8(2B), Q9(1B,2C) Vital Signs Blood pressure diastolic 80 mm Hg 05/22/2025 Height 5ft 6in in 05/22/2025 Blood pressure systolic 150 mm Hg 05/22/2025 Weight 220 lbs 05/22/2025 BMI 35.51 kg/m2 05/22/2025 Procedures Procedure Date Ordered Date Performed Result Body Sit e 75092-MTBXBJT NAIL, 1-5 09/05/2024 N/A 86744-OBWQ SKIN LESIONS, 2 TO 4 09/05/2024 N/A K0082-OQJYNEBT DYSTROPHIC NAILS ANY # 09/05/2024 N/A 74554-SHZISJM NAIL, 1-5 11/14/2024 N/A 84636-KVJF SKIN LESIONS, 2 TO 4 11/14/2024 N/A Y4771-IADQXEXB DYSTROPHIC NAILS ANY # 11/14/2024 N/A 34469-ZPXXGLD NAIL, 1-5 02/25/2025 N/A 69859-HDUG SKIN LESIONS, 2 TO 4 02/25/2025 N/A F8897-ONRSUERI DYSTROPHIC NAILS ANY # 02/25/2025 N/A Encounters Encounter Location Date Provider Diagnosis [address] [address] 09/05/2024 Maverick Bishop Type 2 diabetes mellitus with diabetic peripheral angiopathy without gangrene E11.51 ; Edema, lower extremity R60.0 ; Tinea unguium B35.1 ; Pain in right toe(s) M79.674 and Pain in left toe(s) M79.[address] [address] 11/14/2024 Maverick Bishop Type 2 diabetes mellitus with diabetic peripheral angiopathy without gangrene E11.51 ; Tinea unguium B35.1 ; Pain in right toe(s) M79.674 and Pain in left toe(s) M79.675 [facility] [address] [facility] [address] [place] [address] 02/25/2025 Philly Mendez Type 2 diabetes mellitus with diabetic peripheral angiopathy without gangrene E11.51 ; Tinea unguium B35.1 ; Pain in right toe(s) M79.674 ; Pain in left toe(s) M79.675 ; Other hammer toe(s) (acquired), right foot M20.41 and Other hammer toe(s) (acquired), left foot M20.[address] [facility] [address] 05/22/2025 Lavinia Higginbotham Type 2 diabetes mellitus with diabetic peripheral angiopathy without gangrene E11.51 ; Tinea unguium B35.1 ; Pain in right toe(s) M79.674 and Pain in left toe(s) M79.675 [facility] [address] 07/08/2024 [facility] [address] 09/02/2024 [facility] [address] 11/20/20[facility] [address] 05/26/2025 Lavinia Higginbotham Assessments Encounter Date Diagnosis (ICD Code) Assessment Notes Treatment Notes Treatment Clinical Notes Section Notes 09/05/2024 Type 2 diabetes mellitus with diabetic peripheral angiopathy without gangrene (ICD-10 - E11.51) Q7(A), Q8(2B), Q9(1B,2C) 09/05/2024 Edema, lower extremity (ICD-10 - R60.0) 11/14/2024 Tinea unguium (ICD-10 - B35.1) 11/14/2024 Type 2 diabetes mellitus with diabetic peripheral angiopathy without gangrene (ICD-10 - E11.51) Q7(A), Q8(2B), Q9(1B,2C) 02/25/2025 Tinea unguium (ICD-10 - B35.1) 02/25/2025 Type 2 diabetes mellitus with diabetic peripheral angiopathy without gangrene (ICD-10 - E11.51) Q7(A), Q8(2B), Q9(1B,2C) 05/22/2025 Tinea unguium (ICD-10 - B35.1) 05/22/2025 Type 2 diabetes mellitus with diabetic peripheral angiopathy without gangrene (ICD-10 - E11.51) Q7(A), Q8(2B), Q9(1B,2C) 02/25/2025 Pain in right toe(s) (ICD-10 - M79.674) 05/22/2025 Pain in right toe(s) (ICD-10 - M79.674) 09/05/2024 Tinea unguium (ICD-10 - B35.1) 11/14/2024 Pain in right toe(s) (ICD-10 - M79.674) 09/05/2024 Pain in right toe(s) (ICD-10 - M79.674) 11/14/2024 Pain in left toe(s) (ICD-10 - M79.675) 05/22/2025 Pain in left toe(s) (ICD-10 - M79.675) 02/25/2025 Pain in left toe(s) (ICD-10 - M79.675) 09/05/2024 Pain in left toe(s) (ICD-10 - M79.675) 02/25/2025 Other hammer toe(s) (acquired), right foot (ICD-10 - M20.41) Response to treatment,Impro vement 02/25/2025 Other hammer toe(s) (acquired), left foot (ICD-10 - M20.42) Response to treatment,Impro vement Plan Of Treatment Pending Test Test Name Order Date 33727-RSDSARI NAIL, 1-09/05/2024 60846-YJBYGHV NAIL, 1-11/14/2024 16321-PGDOVDL NAIL, -5 02/25/2025 40477-UYEA SKIN LESIONS, 2 TO 4 02/26/20 25 29222-SIXG SKIN LESIONS, 2 TO 4 09/05/20 24 88055-KJUI SKIN LESIONS, 2 TO 4 11/15/19 25 Y9014-UEVRMFUQ DYSTROPHIC NAILS ANY # T8093-WQRXGKWS DYSTROPHIC NAILS ANY # Q2471-RZXRUWGL DYSTROPHIC NAILS ANY # Next Appt Details Provider Name:Lavinia lynn, 08/04/2025 03:30:00 PM, [address] [facility], [place], [address], Insurance Providers Payer Name Payer Address Payer Phone Subscriber Number Group Number Insured Name Patient Relationship to Insured Coverage Start Date Coverage End Date [facility] [address] [place]HA Meeks [phone] [id number] Wale Poole Self - patient is the insured Medical (General) History Medical History History ICD Code Diabetic Sciatica Chicken pox CAD (Cholesterol) Surgical History Surgery Date(Month/Year) Gall bladder removal
[2025-06-04 18:05] LABS: MANUAL DIFF FLAG NO
[2025-06-04 18:17] LABS: Hematocrit 39.6 % (42.0-52.0); Hemoglobin 12.7 g/dl (14.0-18.0); Imm Gran Abs Auto 0.01 X10*3/uL (0.00-0.03); Imm Gran Pct Auto 0.2 % (0.0-0.4); Lymphocytes Absolute Auto 1.6 X10*3/uL (1.2-4.9); Mean Corpuscular HGB Conc 32.1 g/dl (31.0-36.0); Mean Corpuscular Hemoglobin 30.5 pg (27.0-33.0); Mean Corpuscular Volume 95.0 fL (80.0-98.0); NRBC Abs Auto 0.000 X10*3/uL (0.0-0.012); NRBC Pct Auto 0.0 /100WBC (0.0-0.2); Platelet Count 254 X10*3/uL (160-400); Red Blood Count 4.17 X10*6/uL (4.60-5.80); White Blood Count 5.9 X10*3/uL (4.8-10.8)
[2025-06-04 19:11] LABS: Microalbum/Creatinine Ratio Ur 38.0 ug/mg cr (<30)
[2025-06-04 19:22] LABS: Alanine Aminotransferase 18 U/L (0-40); Albumin Level 4.0 g/dL (3.5-5.0); Alkaline Phosphatase 93 U/L (39-117); Anion Gap 12 (12-20); Aspartate Amino Transferase 53 U/L (5-37); Blood Urea Nitrogen 30 mg/dL (9-16); Calcium 8.6 mg/dL (8.4-10.2); Carbon Dioxide 29 mmol/L (22-29); Chloride 106 mmol/L (96-108); Cholesterol 184 mg/dL (<200); Estimated Glomerular Filt Rate 58; HDL Cholesterol 31 mg/dL (>40); Potassium 4.3 mmol/L (3.3-5.1); Sodium 143 mmol/L (135-145); Total Protein 6.6 g/dL (6.5-8.0); Triglycerides 468 mg/dL (<150)
== END 2025-06-04 15:57 | disposition home or self-care (01) ==
LOC: HO.CHCLDS 15:56
PROVIDERS: PCP Internal Medicine; Visit Provider Internal Medicine
DX: E11.59 Type 2 diabetes mellitus with other circulatory complications (principal)
CPT/HCPCS: 36415; 80053; 80061; 82043; 82570; 84443; 85025